=== PATIENT | male | born 1950 | race Caucasian/White ===

== ENCOUNTER 2025-02-24 11:39 | Emergency (ER) | payer OTHER, SELFPAY ==
[2025-02-24 11:40] VITALS: BMI 26.6
--- NOTE | 2025-02-24 11:44 | EKG_ITS ---
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
--- NOTE | 2025-02-24 12:07 | XR_ITS ---
EXAMINATION: AP chest single view TECHNIQUE: AP portable sitting chest single view Date and time: February 24, 2025, 1210 hours, comparison March 17, 2023 INDICATIONS: Chest pain today. FINDINGS: Mild to moderate CHF Mild to moderate enlargement cardiac contour. Pulmonary vascular congestion including central vascular engorgement. Perihilar edema. Prominent osteopenia IMPRESSION: Mild to moderate CHF
--- NOTE | 2025-02-24 12:08 | EDNOTE_ITS ---
ED General RME/HPI General Chief complaint: Chest Pain Stated complaint: CXP/DIFF BREATHING/HIGH BP x 3 DAYS Time Seen by Provider: 02/24/25 12:00 Arrival date/time: 02/24/25 11:39 CC: Wheezing, nighttime shortness of breath HPI ongoing for the past 5 days. The patient is a has COPD, still continues to smoke, has as needed oxygen but has been using 2 L continuously for the last 5 days. Patient is managed by the [place]. Last episode similar to this was 1 year ago patient was admitted to the [place] prior to that was an episode in which the patient was admitted to [facility]. Patient has no allergies denies chest pain stating when he lies flat he gets pain in the middle of his back . The patient is not tachypneic or tachycardic. Oxygen saturation is 97% on 2 L nasal cannula. Related Data Previous Rx's ?Medication ?Instructions ?Recorded cephalexin 500 mg capsule (Keflex) 500 mg PO QID #28 c aps 04/03/19 nitroglycerin 0.4 mg sublingual 0.4 mg buccal [id number] PRN chest 03/17/23 tablet (Nitrostat) pain #60 tabs albuterol sulfate 90 mcg/actuation 1 inh inhalation QI D #6.7 grams 02/24/25 aerosol inhaler (Ventolin HFA) prednisone 20 mg tablet See Taper PO BID 3 days #6 t abs 02/24/25 Allergies Allergy/AdvReac Type Severity Reaction Status Date / Time No Known Allergies Allergy Verified 02/24/25 11:42 Review of Systems Review of Systems Narrative Review of Systems: GEN: No fever, no chills, no weight loss EYES: No discharge, no visual changes, no pain HEENT: No ear pain, no congestion, no sore throat PULM: + shortness of breath, no cough, no congestion, + wheezing CV: No chest pain, no dyspnea on exertion, no palpitations GI: No nausea, no vomiting, no diarrhea, no pain, no constipation : No frequency, no urgency, no dysuria MUSC/SKEL: No joint pain, no back pain SKIN: No rash PSYCH: No hallucinations, no depression HEME/LYMPH: No easy bleeding or bruising tendencies NEURO: No weakness, no headache Past Medical History Past Medical History CARDIAC: Positive Hypertension; Negative Congestive Heart Failure RESPIRATORY: Negative Chronic Obstructive Pulmonary Disease (COPD) GENITOURINARY: Negative Renal Disease ENDOCRINE: Negative Diabetes Mellitus Type 1 or Diabetes Mellitus Type 2 PSYCHO/SOCIAL: Positive Post Traumatic Stress Disorder Social History SMOKING STATUS: Current every day smoker ED Exam Narrative Physical exam: [General: Not in any acute distress Head normocephalic HEENT: Eyes pupils PERRLA EOM intact mouth pink moist membranes uvula is midline swallow symmetrical phonation is normal within acceptable limits Neck is supple nontender Chest equal chest rise nontender to palpation Respiratory: Clear to auscultation no wheezes crackles or rubs CV: Rate rhythm is regular + murmur, no rubs or clicks Abdomen is soft nontender no masses positive bowel sounds all 4 quadrants Back: No CVA tenderness no spinous process tenderness from cervical spine thoracic and lumbar spine Skin: Intact no petechiae rash induration ulceration or crepitus Extremities: Moving all extremity against resistance cap refill less than 2 seconds neurosensory intact Neuro: Awake alert oriented x3 Glascow coma 15 no focal deficits] Course Course Course Narrative: Reassessment of this patient at 1623, the patient was sound asleep with oxygen saturations at 97% on room air, patient states he feels great , and states he wants to go home . Patient offered admission secondary to elevated troponins patient states he has no chest pain and would rather have medicines and go home. Patient is awake alert oriented of sound mind, patient understands that there is a potential for massive GA which could result in . 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 Quality Measures none Orders Category Date Time Status EKG (ED ONLY) *Do not use* NOW Care 02/24/25 11:44 Completed Insert IV NOW Care 02/24/25 12:43 Active EKG (ED Only) Stat Exams 02/24/25 11:44 Draft XR chest 1V portable Stat Exams 02/24/25 12:07 Completed B-Type Natriuretic Peptide Stat Lab 02/24/25 12:26 Completed CBC Stat Lab 02/24/25 12:26 Completed Comprehensive Metabolic Panel Stat Lab 02/24/25 12:26 Completed Drug Screen,Urine Stat Lab 02/24/25 14:12 Completed LDH (Lactate Dehydrogenase) Stat Lab 02/24/25 12:26 Completed Magnesium Stat Lab 02/24/25 12:26 Completed Partial Thromboplastin Time Stat Lab 02/24/25 12:26 Completed Prothrombin Time with INR Stat Lab 02/24/25 12:26 Completed Troponin I Stat Lab 02/24/25 12:26 Completed Troponin I Stat Lab 02/24/25 14:58 Completed Urinalysis, C/S if Indicated Stat Lab 02/24/25 14:12 Completed Albuterol/Ipratr Rt Lea [Duoneb Rt Lea] Med 02/24/25 12:08 Discontinued 3 ml INH X1 ONE Furosemide Inj [Lasix Inj] Med 02/24/25 12:48 Discontinued 40 mg IVP X1 ONE Furosemide [Lasix Inj] Med 02/24/25 12:35 Discontinued 40 mg IVP X1 ONE Furosemide [Lasix Inj] Med 02/24/25 12:57 Discontinued 40 mg IVP X1 ONE Vital Signs Vital signs: Vital Signs Temperature 98.6 F 02/24/25 12:23 Pulse Rate 91 02/24/25 12:23 Respiratory Rate 23 H 02/24/25 12:23 Blood Pressure 172/99 H 02/24/25 12:23 Pulse Oximetry (%) 95 02/24/25 12:23 Oxygen Delivery Method Nasal Cannula 02/24/25 12:23 Oxygen Flow Rate 2 02/24/25 12:23 Discharge Plan Plan Patient Disposition: HOME (Self Care) Patient condition on transfer: Stable Prescriptions/Referrals Prescriptions/Med Rec: New prednisone 20 mg tablet See Taper PO BID 3 Days Qty: 6 0RF Taper: Prednisone Taper 20 mg DAILY for 2 Days and 0 Hour 10 mg DAILY for 2 Days and 0 Hour 5 mg DAILY for 7 Days and 0 Hour albuterol sulfate [Ventolin HFA] 90 mcg/actuation HFA aerosol inhaler 1 inh inhalation QID Qty: 6.7 0RF No Action cephalexin [Keflex] 500 mg capsule 500 mg PO QID Qty: 28 0RF nitroglycerin [Nitrostat] 0.4 mg tablet, sublingual 0.4 mg buccal [id number] PRN (Reason: chest pain) Qty: 60 0RF Referrals: No Primary/Family,Physician [Primary Care Provider] - In 1 week Delonte Arango MD [Physician, Family Practice] - In 1 week Problem List Clinical Impression: Shortness of breath, Elevated troponin Patient/Caregiver Discharge Instructions Other Activity Instructions:: Take the medications as prescribed [facility] of [facility] return the emergency room for reevaluation. Education Materials: ED Shortness of Breath (Dyspnea) Print Language: Kazakh Stand Alone Forms: Cristal Award Info., Patient Portal Info Letter MARLA/HUBERT Supervising Physician MARLA/HUBERT Supervising Physician: clark Smith ENP [facility] Clinical Information Provided by: patient Medical Records reviewed [facility] Meds/Rx considered, not ordered None Labs/Rad/Tests considered, not ordered None Describe: CBC shows no acute leukocytosis anemia thrombocytopenia Coags within acceptable limits CMP shows a chloride of 108 glucose at 160 AST 52 ALT at 52 no other transaminitis or T. bili elevation electrolyte balances or renal impairment. Troponin is 0.387 note prior visit in 23 shows a mildly elevated troponin but not as high as today. BNP is elevated at 1011. Chronic Illness/Social Conditions Explain: COPD EKG Interpretation EKG #1: EKG Interpretation: EKG performed at 1219 shows a ventricular rate of 90 [place] interval 140 QRS of 186 QTc of 502 sinus rhythm left axis deviation left bundle branch block. When compared to an old EKG of March 2023 there are no significant changes. Labs Labs: interpreted by me Imaging Imaging interpretation: interpreted by me Imaging Interpretation(s): Chest x-ray shows mild congestive heart failure Medication Administration(s) Medication Administration History Discontinued Medications Albuterol/Ipratropium (Albuterol/Ipratropium (Duoneb) Rt Lea 3 Ml Nebu) 3 ml INH X1 ONE Stop: 02/24/25 12:09 Last Admin: 02/24/25 12:53 Dose: 3 ml Documented By: TOM Furosemide (Furosemide Inj 10 Mg/Ml Vial 2 Ml) 40 mg IVP X1 ONE Stop: 02/24/25 12:36 Last Admin: 02/24/25 12:47 Dose: Not Given Documented By: DB Non-Admin Reason: Discontinued Furosemide (Furosemide Inj 10 Mg/Ml 4ml Vial) 40 mg IVP X1 ONE Stop: 02/24/25 12:49 Last Admin: 02/24/25 12:58 Dose: Not Given Documented By: DB Non-Admin Reason: Discontinued Furosemide (Furosemide Inj 10 Mg/Ml Vial 2 Ml) 40 mg IVP X1 ONE Stop: 02/24/25 12:58 Last Admin: 02/24/25 13:02 Dose: 40 mg Documented By: DB
[2025-02-24 12:23] VITALS: BP 172/99; PULSE 91; RESP 23; TEMP 37; O2SAT 95
[2025-02-24] MEDS: ALBUTEROL/IPRATROPIUM (Duoneb) RT SOL 3 ML NEBU INH (12:53)
[2025-02-24 12:56] VITALS: PULSE 92; RESP 18; O2SAT 95
[2025-02-24 13:02] VITALS: BP 166/108; PULSE 92
[2025-02-24] MEDS: FUROSEMIDE INJ 10 MG/ML VIAL 2 ML 40 MG IVP (13:02)
[2025-02-24 13:04] LABS: Basophils # (Auto) 0.0 Thou/mm3 (0.0-0.2); Basophils % (Auto) 0 % (0-2.5); Eosinophils # (Auto) 0.2 Thou/mm3 (0.0-0.5); Eosinophils % (Auto) 2 % (0-10); Hematocrit 41.6 % (41.0-53.0); Hemoglobin 13.8 g/dL (13.5-16.0); Immature Granulocytes Auto 0.04 Thou/mm3 (0.00-0.00); Lymphocytes # (Auto) 1.4 Thou/mm3 (1.0-4.8); Lymphocytes % (Auto) 14 % (10-50); Mean Corpuscular HGB Conc 33.2 g/dl (31.0-37.0); Mean Corpuscular Hemoglobin 30.2 pg (25.0-35.0); Mean Corpuscular Volume 91 fL (80-100); Monocytes # (Auto) 0.9 Thou/mm3 (0.0-0.8); Monocytes % (Auto) 9 % (0-12); Neutrophils # (Auto) 7.1 Thou/mm3 (1.8-7.7); Neutrophils % (Auto) 74 % (37-80); Nucleated Red Blood Cell # 0.00 Thou/mm3 (0.00-0.00); Nucleated Red Blood Cell % 0 /100 WBC (0); Platelet Count 203 Thou/mm3 (140-440); RDW Standard Deviation 47.8 fL (35.1-43.9); Red Blood Count 4.57 Miln/mm3 (4.50-5.90); White Blood Count 9.7 Thou/mm3 (3.8-10.6)
[2025-02-24 13:12] LABS: INR 1.2 (0.9-1.3); Partial Thromboplastin Time 28.5 Seconds (22.0-36.0); Prothrombin Time 12.2 Seconds (9.0-12.2)
[2025-02-24 13:20] LABS: Alanine Aminotransferase 52 U/L (10-49); Albumin, Serum 4.1 gm/dL (3.4-4.8); Albumin/Globulin Ratio 1.5 (1.2-2.2); Alkaline Phosphatase 77 U/L (46-116); Anion Gap 8 (7-16); Aspartate Amino Transferase 52 U/L (0-34); BUN/Creatinine Ratio 18 Ratio (12-20); Bilirubin,Total 1.2 mg/dL (0.3-1.2); Blood Urea Nitrogen 18 mg/dL (9-23); Calcium 9.0 mg/dL (8.3-10.6); Calcium (Corrected) 9.0 mg/dL (8.5-10.1); Carbon Dioxide 26.4 mMol/L (20.0-31.0); Chloride 108 mMol/L (98-107); Creatinine (Component) 1.0 mg/dL (0.6-1.3); Estimated Creatinine Clearance 60.3 mL/min (>60); Globulin 2.7 gm/dL (2.3-3.5); Glucose 160 mg/dL (74-106); LDH (Lactate Dehydrogenase) 316 U/L (120-246); Magnesium 1.9 mg/dL (1.6-2.6); Osmolality,Calculated 288 (275-295); Potassium 3.9 mMol/L (3.4-5.1); Sodium 142 mMol/L (136-145); Total Protein 6.8 gm/dL (5.7-8.2); eGFR > 60 See Note
[2025-02-24 13:23] LABS: Troponin I 0.387 ng/mL (0.0-0.045)
[2025-02-24 13:29] LABS: B-Type Natriuretic Peptide 1011 pg/mL (0-100)
[2025-02-24 14:33] LABS: Collection Type, Urine Clean Catch
[2025-02-24 14:46] LABS: Bilirubin,Urine Negative (Negative); Blood,Urine Negative (Negative); Clarity,Urine Clear (Clear/Hazy); Color,Urine Lt-Yellow (Lt Yel-Yel); Culture Indicated,Urine Not Indicated; Glucose, Urine 4+ (Negative); Ketones,Urine Negative (Negative); Leukocyte Esterase,Urine Negative (Negative); Nitrite,Urine Negative (Negative); PH,Urine 6.5 (5.0-7.0); Protein,Urine Negative (Neg - Trace); RBC,Urine 6 /hpf (0-3); Specific Gravity,Urine 1.009 (1.001-1.035); Squamous Epithelial Cell,Urine < 1 /hpf (0-5); Urobilinogen,Urine Negative mg/dL (0.0-1.0); WBC,Urine 3 /hpf (0-5)
[2025-02-24 15:06] LABS: Amphetamine/Methamp Scrn,U Negative (Negative); Barbiturate Screen,Urine Negative (Negative); Benzodiazepines Screen,Urine Negative (Negative); Benzoylecgonine Screen, Ur Negative (Negative); Fentanyl Screen,Urine Negative (Negative); Opiate Screen,Urine Negative (Negative); THC Screen,Urine Positive (Negative)
[2025-02-24 15:19] VITALS: BP 158/93; PULSE 90; RESP 20; TEMP 36.8; O2SAT 95
[2025-02-24 15:24] LABS: Troponin I 0.384 ng/mL (0.0-0.045)
[2025-02-24 17:59] VITALS: BP 142/85; PULSE 77; RESP 18; O2SAT 90
== END 2025-02-24 17:23 | disposition home or self-care (01) ==
PROVIDERS: Family Medicine; Registered Nurse General Practice; Emergency Provider Emergency Medicine
DX: R06.02 Shortness of breath (principal); R79.89 Other specified abnormal findings of blood chemistry; J44.9 Chronic obstructive pulmonary disease, unspecified
CPT/HCPCS: 36415; 71045; 80053; 80307; 81001; 83615; 83735; 83880; 84484; 85025; 85610; 85730; 93005; 94640; 96374; 99284; A9270; J1938